=== PATIENT | female | born 1970 | race Caucasian/White ===

== ENCOUNTER 2016-03-12 01:46 | Emergency (ER) | payer MEDICAID ==
[~2016-03-12] VITALS: Ht 170.2 cm; Wt 85.3 kg
--- NOTE | 2016-03-12 02:39 | NUR ---
Respitory panal obtained by this RN
[2016-03-12 02:51] LABS: BASOPHILS % (AUTO) 1 % (0-2); EOSINOPHILS # (AUTO) 0.1 10^3uL; EOSINOPHILS % (AUTO) 1 % (0-4); LYMPHOCYTES # (AUTO) 0.8 X10^3; MEAN CORPUSCULAR VOLUME 81 FL (80-100); MEAN PLATELET VOLUME 10.5 FL (6.0-9.5); MONOCYTES # (AUTO) 0.6 X10^3; MONOCYTES % (AUTO) 8 % (3-11); NEUTROPHILS # (AUTO) 6.3 X10^3; NEUTROPHILS % (AUTO) 81 % (51-67); PLATELET COUNT 270 10^3uL (150-450); WHITE BLOOD COUNT 7.81 10^3uL (4.0-11.0)
[2016-03-12 02:53] LABS: MEAN CORPUSCULAR HEMOGLOBIN 25.7 PG (26.0-34.0); MEAN CORPUSCULAR HGB CONC 31.6 g/dL (31.0-37.0)
[2016-03-12 02:59] LABS: ALBUMIN 3.8 g/dL (3.4-5.0); ANION GAP 13.8 MEQ/L (3-15); CALCULATED IONIZED CALCIUM 3.9 mg/dL (3.8-4.6); TOTAL PROTEIN 6.9 g/dL (6.4-8.5)
[2016-03-12] MEDS ORDERED: ED- ALBUTEROL HFA (VENTOLIN HFA) 8 GM INHALER IH ONE ×2 (04:15→04:17)
[2016-03-12 04:23] VITALS: BP 118/72
== END 2016-03-12 04:25 | disposition home or self-care (01) ==
LOC: ED 01:50
DX: J06.9 Acute upper respiratory infection, unspecified (principal); J20.8 Acute bronchitis due to other specified organisms; Z87.891 Personal history of nicotine dependence
CPT/HCPCS: 36415; 71020; 80053; 85025; 86140; 87486; 87581; 87633; 87798; 99282; A9270